=== PATIENT | female | born 1975 ===

== ENCOUNTER 2019-12-18 14:34 | Outpatient (CLI) | payer OTHER | END 2019-12-18 14:44 | disposition home or self-care (01) | LOC: EKG 14:34 | PROVIDERS: ATTEND Colon & Rectal Surgery | DX: K59.09 Other constipation (principal); N39.0 Urinary tract infection, site not specified; D59.8 Other acquired hemolytic anemias; Z11.59 Encounter for screening for other viral diseases; Z20.828 Contact with and (suspected) exposure to other viral communicable diseases; K62.0 Anal polyp; Z01.810 Encounter for preprocedural cardiovascular examination ==

== ENCOUNTER → 2019-12-18 | Outpatient (CLI) | payer OTHER | END | disposition home or self-care (01) | LOC: RAD 13:05 | PROVIDERS: ATTEND Colon & Rectal Surgery | DX: Z01.811 Encounter for preprocedural respiratory examination (principal); K59.09 Other constipation; N39.0 Urinary tract infection, site not specified; K62.5 Hemorrhage of anus and rectum; D59.8 Other acquired hemolytic anemias; Z11.59 Encounter for screening for other viral diseases ==

== ENCOUNTER 2020-06-10 06:27 | Day surgery (SDC) | payer OTHER | END 2020-06-10 11:10 | disposition home or self-care (01) | LOC: AMB-ENDOS 06:27 | PROVIDERS: ATTEND Colon & Rectal Surgery | DX: K62.89 Other specified diseases of anus and rectum (principal); K64.8 Other hemorrhoids; Z12.11 Encounter for screening for malignant neoplasm of colon ==